=== PATIENT | female | born 1950 | race Caucasian/White ===

== ENCOUNTER 2017-09-13 16:42 | Observation (INO) | payer BC, OTHER ==
[~2017-09-13] VITALS: Ht 162.6 cm; Wt 105.7 kg
[~2017-09-13 16:42] MED LIST: ASPIR 8181 MG PO; ATENOLOL50 MG PO; LIPITOR10 MG PO; TRIAMTERENE-HC1 EAC1 PO
[2017-09-13] MEDS ORDERED: ASPIRIN 81 MG CHEW TAB PO STA (17:03)
[2017-09-13] MEDS ORDERED: NITROGLYCERIN 2% OINT 1 GM PKT TOP STA (17:03)
[2017-09-13] MEDS ORDERED: ASPIRIN 81 MG CHEW TAB PO ONE ×2 (17:15→19:00)
[2017-09-13 17:38] LABS: BASOPHILS # (AUTO) 0.1 (0.0-0.1); BASOPHILS % 0.8 % (0.0-1.0); EOSINOPHILS # (AUTO) 0.1 (0.0-0.4); EOSINOPHILS % 1.2 % (0.0-6.0); HEMATOCRIT 38.1 % (34.2-44.1); HEMOGLOBIN 13.2 g/dL (12.0-16.0); LYMPHOCYTES # (AUTO) 2.2 (1.0-3.2); LYMPHOCYTES % 26.5 % (18.0-39.1); MEAN CORPUSCULAR HEMOGLOBIN 28.4 pg (28-32); MEAN CORPUSCULAR HGB CONC 34.6 g/dL (31-35); MEAN CORPUSCULAR VOLUME 81.9 fL (81-99); MONOCYTES # (AUTO) 0.6 (0.2-0.8); MONOCYTES % 7.4 % (4.4-11.3); NEUTROPHILS # (AUTO) 5.4 (2.1-6.9); NEUTROPHILS % 63.9 % (38.7-80.0); PLATELET COUNT 311 x10e3/uL (140-360); RED BLOOD COUNT 4.65 x10e6/uL (3.6-5.1); RED CELL DISTRIBUTION WIDTH 12.9 % (11.7-14.4)
[2017-09-13 17:44] LABS: INR 1.01; PROTHROMBIN TIME 12.5 seconds (11.9-14.5)
[2017-09-13 17:54] LABS: ALANINE AMINOTRANSFERASE 13 IU/L (0-55); ALBUMIN 3.5 g/dL (3.5-5.0); ALBUMIN/GLOBULIN RATIO 1.1 (0.8-2.0); ALKALINE PHOSPHATASE 66 IU/L (40-150); ANION GAP 14.2 mmol/L (8-16); BLOOD UREA NITROGEN 14 mg/dL (7-26); BUN/CREATININE RATIO 16 (6-25); CALCIUM 9.2 mg/dL (8.4-10.2); CARBON DIOXIDE 28 mmol/L (22-29); CHLORIDE 99 mmol/L (98-107); CREATINE KINASE 80 IU/L (29-168); CREATININE, SERUM 0.87 mg/dL (0.57-1.11); EST GLOMERULAR FILTRATION RATE > 60 ML/MIN (60-); GLUCOSE 114 mg/dL (74-118); POTASSIUM 3.2 mmol/L (3.5-5.1); SODIUM 138 mmol/L (136-145)
--- NOTE | 2017-09-13 18:37 | Diagnostic Imaging Report ---
PROCEDURE: A single AP view of the chest. COMPARISON: Patients [facility], , CHEST 2 VIEWS, 11/05/2012, 19:14. INDICATIONS: CHEST PAIN FINDINGS: Lines/tubes: None. Lungs: The lungs are well inflated and clear. There is no evidence of pneumonia or pulmonary edema. Pleura: There is no pleural effusion or pneumothorax. Heart and mediastinum: The heart and the mediastinum are unremarkable. Bones: No acute bony abnormality. IMPRESSION: 1. No acute cardiopulmonary abnormalities. Ronan Crabtree M.D. Dictated by: Ronan Crabtree M.D. on 09/13/2017 at 18:36 Electronically approved by: Ronan Crabtree M.D. on 09/13/2017 at 18:36
[2017-09-13] MEDS ORDERED: ENOXAPARIN SODIUM INJ 100 MG/ML SYR SC STA (18:46)
[2017-09-13] MEDS ORDERED: NITROGLYCERIN 0.4 MG SUBL SL PRN (19:00)
[2017-09-13] MEDS ORDERED: ONDANSETRON HCL INJ 2 MG/ML VIAL IV PRN (19:00)
[2017-09-13] MEDS ORDERED: SODIUM CHLORIDE FLUSH 10 ML SYR INJ PRN (19:00)
[2017-09-13] MEDS: FAMOTIDINE 20 MG TAB PO SCH (19:47)
--- OUTSIDE RECORDS SUMMARY | 2017-09-13 20:25 | XMS REPORT ---
Author Author [facility] Address Unknown Phone Unavailable Care Team Providers Care Laborer Airport Maintenance Name Role Phone BILL GO Unavailable Unavailable Problems This patient has no known problems. Allergies, Adverse Reactions, Alerts This patient has no known allergies or adverse reactions. Medications This patient has no known medications. Results Test Description Test Time Test Comments Text Results Atomic Results Result Comments CHEST SINGLE (PORTABLE) [place] [address] Patient Name: RAGHAVENDRA CARRERA MR #: [id number] : 1950 Age/Sex: 67/F Req #: [id number] Adm Physician: Ordered by: BILL GO MD Report #: [id number] Location: ER Room/Bed: Procedure: [id number] DX/CHEST SINGLE (PORTABLE) Exam Date: 09/13/17 Exam Time: 1756 REPORT STATUS: Signed PROCEDURE: A single AP view of the chest. COMPARISON: [facility], , CHEST 2 VIEWS, 11/05/2012, 19:14. INDICATIONS: CHEST PAIN FINDINGS: Lines/tubes: None. Lungs: The lungs are well inflated and clear. There is no evidence of pneumonia or pulmonary edema. Pleura: There is no pleural effusion or pneumothorax. Heart and mediastinum: The heart and the mediastinum are unremarkable. Bones: No acute bony abnormality. IMPRESSION: 1. No acute cardiopulmonary abnormalities. Cris Crabtree M.D. Dictated by: Cris Crabtree M.D. on 09/13/2017 at 18:36 Electronically approved by: Cris Crabtree M.D. on 09/13/2017 at 18:36 Dictated By: CRIS CRABTREE MD 35 Transcribed By: JOSEPH on 09/13/171835 COPY TO: BILL GO MD
[2017-09-13 21:30] VITALS: BP_SYST 118; BP_SYST 122; BP_DIAS 62
[2017-09-13 22:28] LABS: BILIRUBIN,URINE NEGATIVE (NEGATIVE); COLOR,URINE YELLOW (YELLOW); KETONES,URINE NEGATIVE (NEGATIVE); LEUKOCYTE ESTERASE ,URINE NEGATIVE (NEGATIVE); NITRITE,URINE NEGATIVE (NEGATIVE); PROTEIN,URINE DIPSTICK NEGATIVE (NEGATIVE); URINE UROBILINOGEN 0.2 mg/dL (0.2 - 1)
[2017-09-13 22:29] LABS: CLARITY,URINE SL CLOUDY (CLEAR)
[2017-09-13 22:42] LABS: BACTERIA,URINE FEW /HPF; EPITHELIAL CELLS,URINE FEW /LPF; RBC,URINE 0-5 /HPF (0-5); WBC,URINE (MAN) 0-5 /HPF (0-5)
[2017-09-13] MEDS ORDERED: ALBUTEROL/IPRATROPIUM 3 ML NEB ONE (23:17)
[2017-09-14] VITALS: BP 118/62
[2017-09-14 01:40] LABS: CHOL/HDL RATIO 5.5 (3.0-3.6)
[2017-09-14] MEDS ORDERED: MULTI-VITAMIN1 EACH PO (04:47)
[2017-09-14] MEDS ORDERED: PLAVIX75 MG PO (04:47)
[2017-09-14 06:00] VITALS: BP 129/66
[2017-09-14] MEDS ORDERED: PNEUMOCOCCAL VACCINE POLYVALENT 23 MCG/0.5 ML VIAL IM ONE (08:00)
[2017-09-14] MEDS: FAMOTIDINE 20 MG TAB PO SCH (09:00)
[2017-09-14] MEDS ORDERED: ASPIRIN 81 MG ENTERIC COATED PO SCH ×2 (09:00→09:45)
[2017-09-14 09:19] VITALS: BP 150/67
[2017-09-14 09:30] LABS: CREATINE KINASE 59 IU/L (29-168)
[2017-09-14] MEDS ORDERED: ACETAMINOPHEN 325 MG TAB PO PRN (09:45)
[2017-09-14] MEDS ORDERED: CLOPIDOGREL BISULFATE 75 MG TAB PO SCH (09:45)
[2017-09-14] MEDS ORDERED: TRIAMTERENE/HCTZ 37.5-25 MG TAB PO SCH (10:30)
--- NOTE | 2017-09-14 11:12 | Consultation ---
DATE OF CONSULTATION: September 14, 2017 REASON FOR CONSULTATION: Chest pain. HPI: This is a 67-year-old female with a known history of CAD, status post LAD PCI in October 2012, hypertension, hypercholesterolemia, and obesity. Patient presents to [facility] ER with complaints of chest pain that started about 2 o'clock yesterday. Describes the chest pain as retrosternal, tightness, pressure with shortness of breath and diaphoresis that lasted about an hour and relieved on its own. Came to the ER for further evaluation. Initial enzymes were negative times 2. Reports that she has been compliant with her aspirin, Plavix, beta nicholas, and statin therapy. Currently, is chest pain free. PAST MEDICAL HISTORY: LAD PCI on November 04, 2012, hypertension, hyperlipidemia. PAST SURGICAL HISTORY: LAD PCI in 2012, cervical surgery, hysterectomy. FAMILY HISTORY: Mother alive at 82 years old. History of CVA. She is bedridden. Father at age 72 with complications of CVA. SOCIAL HISTORY: She is and nonsmoker. Denies any alcohol use. She is a general office clerk. ALLERGIES: NO KNOWN ALLERGIES. REVIEW OF SYSTEMS GENERAL: No fevers. No night sweats. No chills. No weight loss or weight gain. HEENT: Positive for headaches. No lightheadedness, vertigo. No decreased hearing, tinnitus. No nosebleeds. No stuffiness. No sore throat. No hemoptysis. RESPIRATORY: Positive for shortness of breath with exertion. Denies any hemoptysis or any wheezing. CARDIOVASCULAR: Positive chest pain as per HPI. Positive for fatigue, dyspnea on exertion. Denies any orthopnea. Positive for palpitations. GI: Good appetite. No constipation. No abdominal pain. No diarrhea. No hemoptysis. No melena. No blood in stool. Positive for reflux. HEMATOLOGY: Positive for easy bruising. : Denies any frequency, incontinence, hematuria, any burning, or pain on urination. MUSCULOSKELETAL: Right leg pain. Right shoulder pain. Generalized joint pains. PERIPHERAL VASCULAR: Occasional lower extremity edema. SKIN: No dryness. No easy bruising. NEUROLOGIC: No fainting. No tremors. PHYSICAL EXAMINATION VITAL SIGNS: Temperature 97.2, pulse 60, respiratory rate 18, blood pressure 150/67, pulse ox 98. Height 64 inches and weight 233 pounds. GENERAL: Appears stated age. No acute distress. Reliable informant. HEENT: Normocephalic. Extraocular movements intact. Pupils equal and reactive. Mucosa is pink. Trachea midline. No carotid bruits. No JVD. CARDIAC: S1 and S2. Regular rate and rhythm. PMI in the left 5th intercostal space. RESPIRATORY: Bilateral breath sounds clear to auscultation. Good air entry and exit. ABDOMEN: Soft, nontender and obese. No organomegaly noted. EXTREMITIES: Plus 1 lower extremity edema. Positive varicose veins. VASCULAR: Plus 2 bilateral radial pulses. Plus 2 bilateral PT and DP pulses. NEUROLOGIC: Cranial nerves II-XII intact. IMAGING: Chest x-ray with no acute abnormalities. EKG with Q-waves in lead III. LABS: Hemoglobin 13.2, hematocrit 38 and platelets 311,000. Chemistry: Sodium 138, potassium 3.2, chloride 99, bicarb 28, BUN 14, creatinine 0.8. Troponin 0.059 and 0.01. BNP 34. ASSESSMENT AND PLAN 1. Coronary artery disease with history of percutaneous coronary intervention with chest pain. 2. Hypertension. 3. Hyperlipidemia. 4. Obesity. 5. Reflux. PLAN: Patient presents with anginal symptoms with history of PCI. Will go ahead and do a stress test to evaluate symptoms. If positive, the patient will undergo left heart catheterization. Will go ahead and continue the patient's aspirin, Plavix, statin, and beta nicholas therapy. Will continue the patient on antihypertensives. Further recommendations post stress test. Thank you very much for this consult. Will follow the patient and adjust therapy as course progresses. DICTATED BY TOBY HENLEY NP Job#: [id number] JIMMY
--- NOTE | 2017-09-14 12:31 | Cardiology Report ---
DATE OF STUDY: September 14, 2017 CARDIAC STRESS TEST TECHNICAL DETAILS: The protocol is Giovanni with A target heart rate at 132 per minute. RESULTS: 1. Patient exercised for 5 minutes and 1 second. 2. Heart rate increased from 74 to 152 per minute. 3. Blood pressure increased from 140/60 to 162/64. No EKG changes. 4. No chest pain. Only shortness of breath. IMPRESSION: Negative cardiac stress test. Limitations of a negative cardiac stress test are discussed and explained to the patient and her daughter. Job#: [id number] EV
[2017-09-14] MEDS ORDERED: ATORVASTATIN 40 MG TAB PO SCH (21:00)
[2017-09-14] MEDS ORDERED: ATORVASTATIN 20 MG TAB PO SCH (21:00)
[2017-09-15] MEDS ORDERED: ATENOLOL 50 MG TAB PO SCH (09:00)
== END 2017-09-14 13:36 | disposition home or self-care (01) ==
LOC: ER 16:42 → EDBEDREQ 19:41 → IMCU 20:22
DX: R07.9 Chest pain, unspecified (principal); I25.10 Atherosclerotic heart disease of native coronary artery without angina pectoris; Z95.5 Presence of coronary angioplasty implant and graft; I10 Essential (primary) hypertension; E66.9 Obesity, unspecified; K21.9 Gastro-esophageal reflux disease without esophagitis; E78.00 Pure hypercholesterolemia, unspecified
CPT/HCPCS: 36415 ×2; 71045; 80053; 80061; 81001; 82550 ×2; 82553 ×2; 83880; 84484 ×2; 85025; 85610; 85730; 87086; 90732; 93005; 93017; 96372; 99284; G0378 ×2; J1650

== ENCOUNTER 2019-03-20 12:02 | Observation (INO) | payer MEDICARE, OTHER ==
[~2019-03-20] VITALS: Ht 162.6 cm; Wt 105.7 kg
[2019-03-20] VITALS (11 sets, daily range): BP systolic 119–164; BP diastolic 58–74
[~2019-03-20 12:02] MED LIST changes: +MULTI-VITAMIN1 EACH PO; +PLAVIX75 MG PO
--- OUTSIDE RECORDS SUMMARY | 2019-03-20 12:05 | XMS REPORT | Encounter Summary ---
Author Organization Unknown Address [address] [place] [id number] Phone [phone] Reason for Visit Medical Complaint; fever, body aches, headache, cough x 6 days Instructions 1. Acute upper respiratory infection Discussion Note: None recorded. Patient educational handouts: No information available. Plan of Care Patient Instructions Instruct pt to start on Flonase 2 sprays at bedtime x 14 days for her nasal congestion along with continuing her antibiotic. If pt noted fever returns or wet productive, chest congestion, call clinic or see pcp. Reminders Provider Appointments None recorded. Lab None recorded. Referral None recorded. Procedures None recorded. Surgeries None recorded. Imaging None recorded. Medications Name Start Date atenolol 50 mg tablet atorvastatin 10 mg tablet Augmentin 875 mg-125 mg tablet Take 1 tablet(s) every 12 hours by oral route for 7 days. clopidogrel 75 mg tablet promethazine-DM 6.25 mg-15 mg/5 mL syrup Take 5 mL every 6 hours by oral route as needed. triamterene 75 mg-hydrochlorothiazide 50 mg tablet Medications Administered None recorded. Vitals Height Weight BMI Blood Pressure 5 ft 4 in 226 lbs 38.8 134/82 Lab Results Date Name Result Description Status Rapid Flu (A+B) Influenza a: negative Influenza B: negative Rapid Strep Group a, Throat Result: negative Swab Location: Left and Right tonsillar pillars Allergies Name Reaction Severity Onset NKDA Problems Name Status Onset Date Source Acute Upper Respiratory Infection Active Encounter Cough Active Encounter Procedures Date Name Performed by Appendectomy Information not available Vaccine List None recorded. Social History Smoking Status Never Smoker Past Encounters 11/06/2015 Acute Upper Respiratory Infection EVERARDO Merrill: [address] [place] [address], Ph. 11/03/2015 Cough EVERARDO Still: [address] [place] [address], Ph. History of Present Illness Xzrgqip-Abrab-Igt Reported By: Patient HPI: Quality: ; fever 101.4F. Duration: constant. Severity: subjective temperature. Onset/Timing: first recorded 4 days. Context: no ill contacts, no tick/insect bites, no recent travel, no new medications. Associated Symptoms: no rash, no lethargy, cough, nasal passage blockage (stuffiness). Modifying Factors OTC medication Review of Systems Basic Reported By: Patient Constitutional: Constitutional: fever Eyes: Eyes: no eye complaints Zmhm-Pniy-Foefd-Throat: Ears: no ear complaints. Nose: nose/sinus problems. Mouth/Throat: no sore throat, no bleeding gums, no mouth complaints, no teeth problems Cardiovascular: Cardiovascular: no chest pain, no shortness of breath, no known heart murmur Respiratory: Respiratory: no wheezing, no shortness of breath, cough Gastrointestinal: Gastrointestinal: no abdominal pain, no vomiting / diarrhea Genitourinary: Genitourinary: no urinary complaints, no discharge Musculoskeletal: Musculoskeletal: no muscle aches, no muscle weakness, no arthralgias/joint pain, no back pain Skin: Skin: no abnormal / changing mole, no jaundice, no rashes Neurologic: Neurologic: no loss of consciousness, no weakness, no numbness, no seizures, no dizziness, no headaches Physical Exam Adult Female Complete, Adult Basic Constitutional: General Appearance: healthy-appearing, well-nourished, well-developed, overweight. Level of Distress: NAD. Ambulation: ambulating normally Psychiatric: Mental Status: active and alert. Orientation: to time, to place, to person Eyes: Lids and Conjunctivae: non-injected, no discharge, no pallor. Pupils: PERRLA. Corneas: grossly intact. EOM: EOMI. Lens: clear. Sclerae: non-icteric. Vision: acuity grossly intact Hxz-Hbhx-Owiva-Throat: Ears: no lesions on external ear, no outer ear tenderness, EACs clear, TMs clear. Hearing: no hearing loss. Nose: no lesions on external nose, nares patent, no septal deviation, nasal passages clear, no sinus tenderness, no nasal discharge; nasal turbinate hypertrophic. Lips, Teeth, and Gums: no mouth or lip ulcers, no bleeding gums, normal dentition. Oropharynx: moist mucous membranes, no erythema, no exudates, tonsils not enlarged Neck: Neck: supple, trachea midline, no masses, FROM. Lymph Nodes: no cervical LAD, no supraclavicular LAD. Thyroid: no enlargement, non-tender, no nodules Lungs: Respiratory effort: no dyspnea, no tachypnea, no use of accessory muscles, no intercostal retractions. Auscultation: breath sounds normal Cardiovascular: Heart Auscultation: RRR, no murmurs. Neck vessels: no carotid bruits
--- OUTSIDE RECORDS SUMMARY | 2019-03-20 12:05 | XMS REPORT ---
Author Author Dottie Harris Organization [employer] Address Unknown Phone Unavailable Care Team Providers Care Adjuster Electrical Contacts Name Role Phone Dottie Harris CP Unavailable Encounters Encounter Location Date Unknown Dottie Harris MD [place] Sep 11, 2015 Unknown Dottie Harris MD [place] Sep 11, 2015 Problems Problem Type Condition ICD-9 Code Onset Dates Condition Status Problem Atherosclerosis of [place] coronary artery of [place] heart with angina pectoris I25.119 Active Problem Hypercholesterolemia E78.0 Active Problem Heart failure I50.9 Active Problem Nonrheumatic mitral (valve) insufficiency I34.0 Active Problem Hypercholesterolemia 272.0 Active Problem Hypertensive heart disease with heart failure I11.0 Active Problem 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 Active Problem Carotid bruit R09.89 Active Problem Claudication I73.9 Active Problem History of PTCA Z98.61 Active Problem Abnormal EKG R94.31 Active Problem CAD, [place] Coronary Artery 414.01 Active Problem PTCA Status V45.82 Active Problem Abnormal EKG 794.31 Active Problem HTN heart dis benign, without CHF 402.10 Active Problem [place] (dyspnea on exertion) R06.09 Active Problem CAD in [place] artery I25.10 Active Problem Claudication 443.9 Active Problem Atypical chest pain R07.89 Active Problem Carotid Bruit 785.9 Active Problem Hypertensive heart disease without heart failure I11.9 Active Medications Medication Code System Code Instructions Start Date End Date Status Dosage Atenolol MEDISPAN [address]-53 50 mg Orally Once a day Active 1 tablet Social History Social History Element Qualifiers Date Reported Smoking . Status Never Smoker Aug 19, 2015 Alcohol Use No. Aug 19, 2015 Alcohol Screening: No. Did you have a drink containing alcohol in the past year?: No, Points: 0, Interpretation: Negative Aug 19, 2015 Marital Status: . Aug 19, 2015 Do you drink alcohol? No. 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
--- OUTSIDE RECORDS SUMMARY | 2019-03-20 12:05 | XMS REPORT ---
Author Author Chaparro Harris [facility] [employer] Address Unknown Phone Unavailable Care Team Providers Care Sales Executive Name Role Phone Chaparro Harris Unavailable Allergies, Adverse Reactions, Alerts Substance Reaction Event Type N.K.D.A. 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 Active Assessment Claudication I73.9 Active Assessment Right leg pain M79.604 Active Assessment Hypercholesterolemia E78.01 Active Assessment Palpitations R00.2 Active Problem CAD in [place] artery I25.10 Active Assessment Carotid bruit R09.89 Active Problem History of PTCA Z98.61 Active Assessment Hypertensive heart disease without heart failure I11.9 Active Problem [place] (dyspnea on exertion) R06.09 Active Problem Claudication I73.9 Active Problem Carotid bruit R09.89 Active Problem Right leg pain M79.604 Active Problem Stented coronary artery Z95.5 Active Assessment Stented coronary artery Z95.5 Active Assessment [place] (dyspnea on exertion) R06.09 Active Problem Palpitations R00.2 Active Assessment Abnormal EKG R94.31 Active Problem 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 Active Problem Abnormal EKG R94.31 Active Problem 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 Active Problem Nonrheumatic mitral (valve) insufficiency I34.0 Active Problem Hypertensive heart disease without heart failure I11.9 Active Problem Hypercholesterolemia E78.01 Active Assessment CAD in [place] artery I25.10 Active Assessment Atherosclerosis of [place] coronary artery of [place] heart with angina pectoris I25.119 Active Problem Heart failure I50.9 Active Problem Atherosclerosis of [place] coronary artery of [place] heart with angina pectoris I25.119 Active Problem Hypertensive heart disease with heart failure I11.0 Active Problem Atypical chest pain R07.89 Active Medications Medication Code System Code Instructions Start Date End Date Status Dosage Atenolol [facility] 98541529031 50 mg Orally Once a day Active 1 tablet Clopidogrel Bisulfate [facility] 20156203751 75 Orally daily Active take one tablet by mouth daily Cod Liver Oil [facility] 79124322941 - Orally Active not defined Vitamin D [facility] 04333394714 1000 UNIT Orally Once a day Active 1 tablet Aspirin Adult Low Strength [facility] 78777261893 81 MG Orally Once a day Active 1 tablet Triamterene-HCTZ [facility] 26051018295 75-50 MG Orally Once a day Active 1 tablet in the morning Centrum Silver Ultra Womens [facility] 72282618934 Orally Active as directed Vitamin B12 [facility] 68154237415 100 MCG Orally Once a day Active 1 tablet Calcium [facility] 85605080851 500MG Orally Once a day Active 2 tablet with food Vitamin E [facility] 96233615183 100 UNIT Orally Once a day Active 1 capsule Clopidogrel Bisulfate [facility] 86810170230 75 MG PO daily Active 1 tablet Atorvastatin Calcium [facility] 35408846490 40 MG Orally Once a day Active 1 tablet Vital Signs Date/Time: September 28, 2017 BMI 39.65 Index Weight 231 lbs Height 64 in Temperature 96.5 F Cardiac Monitoring Heart Rate 60 /min Blood Pressure Diastolic 76 mm Hg Blood Pressure Systolic 120 mm Hg Results No Known Results Summary Purpose [employer] Submission
--- OUTSIDE RECORDS SUMMARY | 2019-03-20 12:05 | XMS REPORT ---
Author Author Dottie Harris Organization [employer] Address Unknown Phone Unavailable Care Team Providers Care Cyber Software Engineer Name Role Phone Dottie Harris Unavailable Encounters Encounter Location Date Unknown Dottie Harris MD [place] Sep 11, 2015 Unknown Dottie Harris MD [place] Sep 11, 2015 Unknown Dottie Harris MD [place] December 19, 2015 Problems Problem Type Condition ICD-9 Code Onset Dates Condition Status Problem Atherosclerosis of [place] coronary artery of [place] heart with angina pectoris I25.119 Active Problem [...] Problem Abnormal EKG R94.31 Active Problem CAD, [place] Coronary Artery 414.01 Active Problem PTCA Status V45.82 Active Problem Abnormal EKG 794.31 Active Problem HTN heart dis benign, without CHF 402.10 Active Problem [place] (dyspnea on exertion) R06.09 Active Problem CAD in [place] artery I25.10 Active Problem Claudication 443.9 Active Problem Atypical chest pain R07.89 Active Problem Carotid Bruit 785.9 Active Problem Hypertensive heart disease without heart failure I11.9 Active Medications Medication Code System Code Instructions Start Date End Date Status Dosage Atorvastatin Calcium MEDISPAN [address]-43 40 MG Orally Once a day Active 1 tablet Social History Social History Element Qualifiers Date Reported Smoking . Status Never Smoker October 20, 2015 Alcohol Use No. October 20, 2015 Alcohol Screening: No. Did you have a drink containing alcohol in the past year?: No, Points: 0, Interpretation: Negative October 20, 2015 Marital Status: . October 20, 2015 Do you drink alcohol? No. 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
--- OUTSIDE RECORDS SUMMARY | 2019-03-20 12:05 | XMS REPORT ---
Author Author Dottie Harris Organization [employer] Address Unknown Phone Unavailable Care Team Providers Care Winder Fixer Name Role Phone Dottie Harris Unavailable Encounters Encounter Location Date Unknown Dottie Harris MD [place] December 08, 2015 Unknown Dottie Harris MD [place] Mar 16, 2016 Unknown Dottie Harris MD [place] Sep 11, 2015 Unknown Dottie Harris MD [place] Sep 11, 2015 Unknown Dottie Harris MD [place] December 19, 2015 Problems Problem Type Condition ICD-9 Code Onset Dates Condition Status Problem Atherosclerosis of [place] coronary artery of [place] heart with angina pectoris I25.119 Active Problem [...] Problem Abnormal EKG R94.31 Active Problem CAD, [place] Coronary Artery 414.01 Active Problem PTCA Status V45.82 Active Problem Abnormal EKG 794.31 Active Problem HTN heart dis benign, without CHF 402.10 Active Problem [place] (dyspnea on exertion) R06.09 Active Problem CAD in [place] artery I25.10 Active Problem Claudication 443.9 Active Problem Atypical chest pain R07.89 Active Problem Carotid Bruit 785.9 Active Problem Hypertensive heart disease without heart failure I11.9 Active Medications Medication Code System Code Instructions Start Date End Date Status Dosage Atenolol [facility] [address]-39 50 mg Orally Once a day Active [...] alcohol? No. 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
--- OUTSIDE RECORDS SUMMARY | 2019-03-20 12:05 | XMS REPORT | Encounter Summary ---
Author Organization Unknown Address [address] [place] [address] Phone [phone] Care Team Providers Care Patient Assessment Coordinator Name Role Phone Jae King 3 [phone] Reason for Visit Medical Complaint Instructions 1. Sore throat symptom sore throat: care instructions Lidocaine Viscous 2 % mucosal solution rapid strep group A, throat 2. Dysfunction of eustachian tube eustachian tube problems: care instructions fluticasone 50 mcg/actuation nasal spray,suspension Discussion Note Pt is in NAD; Verbalizes understanding of all instructions with no questions at this time. Plan of Care Patient Instructions Gargle and spit viscous lidocaine as needed for sore throat as directed. Alternate with Ibuprofen and acetaminophen every 4hrs as needed for pain. Proper hydration and rest.Do not share any utensils/cups, no kissing. Frequent handwashing recommended. Take fluticasone as needed for ear congestion. Celina one spray in each nostril twice a day. Take a warm, steamy shower, blow your nose thereafter, and spray in each nostril. Tilt your head up for about 10 seconds and breath through your mouth. Do not sniff or snort the medication in or else the medication will go to your throat and not be absorbed appropriately. Take medications as prescribed and follow up with a PCP within 2-3 if symptoms worsen as discussed. Reminders Provider Appointments None recorded. Lab Rapid Strep Group a, Throat 03/05/2017 [facility] Referral None recorded. Procedures None recorded. Surgeries None recorded. Imaging None recorded. Medications Name Start Date atenolol 50 mg tablet atorvastatin 40 mg tablet clopidogrel 75 mg tablet fluticasone 50 mcg/actuation nasal spray,suspension [place] 1 spray twice a day by intranasal route as needed for 10 days. Lidocaine Viscous 2 % mucosal solution Take 15 mL every 3 hours by oral route as needed. Medications Administered None recorded. Vitals Height Weight BMI Blood Pressure 5 ft 4 in 230 lbs 39.5 kg/m2 122/82 mm[Hg] Lab Results Date Name Specimen Result Interpretation Description Value Range Status Address Rapid Strep Group a, Throat Result negative [facility]: [address] [place] [address] Swab Location Left and Right tonsillar pillars [facility]: [address] [place] [address] Allergies Code Code System Name Reaction Severity Status Onset NKDA Problems Name Status Onset Date Source Acute Upper Respiratory Infection Active Encounter Cough Active Encounter Procedures Date Name Performed by Appendectomy Information not available Vaccine List Vaccine Type influenza, unspecified formulation 05/25/2016 Tdap 07/25/2011 Social History Smoking Status Never Smoker Past Encounters 03/05/2017 Sore Throat Symptom; Dysfunction of Eustachian Tube Porsha Shen, [employer]-C: [address] [place] [address], Ph. History of Present Illness Throat-Oral Complaint Reported By: Patient HPI: Location: throat. Quality: sore throat. Severity: moderate, pain level 6-7/10. Duration: 2 days. Onset/Timing: sudden. Context: no sick contacts, no foreign travel, non-smoker. Modifying factors: salt water gargles. Associated Symptoms: no fever, no headache, no body aches, no sputum production, no shortness of breath, no wheezing, no change in number of pillows needed to sleep at night, no sweats, no significant weight gain, no significant weight loss, no morning cough, no vomiting, no diarrhea, no rash, no nausea, sore throat Ear Complaint Reported By: Patient HPI: Location: bilateral, pain below ear. Quality: ears feel full/plugged, throbbing. Severity: progressively worse, intermittent, current pain /10. Duration: intermittent; 2 days. Onset/Timing: worse, gradual. Context: no sick contacts, no recent swimming/water in ear, no exposure to second hand smoke, no head trauma, not grinding teeth, no recent air travel. Modifying factors: does not hurt to lie on, or pull on ear, does not hurt to chew. Associated Symptoms: no discharge from the ears, no hearing loss, no nose/sinus problems, no ringing in the ears, no fever, no chills, no earache, no dizziness, no vertigo, no headache, no muscle aches, popping noise in the ears Review of Systems:ROS as noted in the HPI Review of Systems Basic Reported By: Patient Physical Exam Adult Basic, Adult Female Complete Reported By: Patient Constitutional: General Appearance: healthy-appearing, well-nourished, well-developed. Level of Distress: NAD. Ambulation: ambulating normally Psychiatric: Mental Status: active and alert. Orientation: to time, to place, to person Osz-Owli-Gvqly-Throat: Ears: no lesions on external ear, EACs clear, TMs clear, outer ear tenderness. Hearing: no hearing loss. Nose: no lesions on external nose, nares patent, no septal deviation, nasal passages clear, no sinus tenderness, no nasal discharge. Lips, Teeth, and Gums: no mouth or lip ulcers, no bleeding gums, normal dentition. Oropharynx: moist mucous membranes, no erythema, no exudates, tonsils not enlarged Neck: Neck: supple. Lymph Nodes: no cervical LAD Lungs: Respiratory effort: no dyspnea, no tachypnea, no use of accessory muscles, no intercostal retractions. Auscultation: breath sounds normal Cardiovascular: Heart Auscultation: RRR, no murmurs Neurologic: Gait and Station: normal gait, normal station
--- OUTSIDE RECORDS SUMMARY | 2019-03-20 12:05 | XMS REPORT ---
Author Author Chaparro Harris Organization [employer] Address Unknown Phone Unavailable Care Team Providers Care Narcotics Investigator Name Role Phone Chaparro Harris Unavailable Allergies, Adverse Reactions, Alerts Substance Reaction Event Type N.K.D.A. 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 Active Assessment Right leg pain M79.604 Active Assessment Hypercholesterolemia E78.01 Active Problem CAD in [place] artery I25.10 Active Assessment Claudication I73.9 Active Problem History of PTCA Z98.61 Active Assessment Carotid bruit R09.89 Active Problem [place] (dyspnea on exertion) R06.09 Active Problem Claudication I73.9 Active Problem Carotid bruit R09.89 Active Problem Right leg pain M79.604 Active Problem Stented coronary artery Z95.5 Active Assessment [place] (dyspnea on exertion) R06.09 Active Assessment Abnormal EKG R94.31 Active Problem Palpitations R00.2 Active Assessment Hypertensive heart disease without heart failure I11.9 Active Problem 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 Active Problem Abnormal EKG R94.31 Active Problem 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 Active Problem Nonrheumatic mitral (valve) insufficiency I34.0 Active Problem Hypertensive heart disease without heart failure I11.9 Active Problem Hypercholesterolemia E78.01 Active Assessment Stented coronary artery Z95.5 Active Assessment CAD in [place] artery I25.10 Active Problem Heart failure I50.9 Active Problem 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 Active Problem Hypertensive heart disease with heart failure I11.0 Active Problem Atypical chest pain R07.89 Active Medications Medication Code System Code Instructions Start Date End Date Status Dosage Calcium NDC 11926103964 500MG Orally Once a day Active 2 tablet with food Triamterene-HCTZ NDC 29250448399 75-50 MG Orally Once a day Active 1 tablet in the morning Atorvastatin Calcium [facility] 87106248092 40 MG Orally Once a day Active 1 tablet Centrum Silver Ultra Womens [facility] 41912442036 Orally Active as directed Vitamin B12 [facility] 83784660058 100 MCG Orally Once a day Active 1 tablet Vitamin D [facility] 29641409904 1000 UNIT Orally Once a day Active 1 tablet Clopidogrel Bisulfate [facility] 59088573509 75 Orally daily Active take one tablet by mouth daily Atenolol [facility] 92595961035 50 mg Orally Once a day Active 1 tablet Aspirin Adult Low Strength [facility] 99766125394 81 MG Orally Once a day Active 1 tablet Vital Signs Date/Time: December 15, 2016 BMI 38.62 Index Weight 225 lbs Height 64 in Temperature 97.1 F Cardiac Monitoring Heart Rate 63 /min Blood Pressure Diastolic 80 mm Hg Blood Pressure Systolic 132 mm Hg Results No Known Results Summary Purpose [employer] Submission
--- OUTSIDE RECORDS SUMMARY | 2019-03-20 12:05 | XMS REPORT | Continuity of Care Document ---
Author Author [facility] Organization [employer] Address Unknown Phone Unavailable Care Team Providers Care Fisher Name Role Phone [employer] Unavailable Unavailable Problems Problem Status Onset Date Classification Date Reported Comments Source Sore throat symptom 03/05/2017 Diagnosis 03/05/2017 [facility] Dysfunction of eustachian tube 03/05/2017 Diagnosis 03/05/2017 [facility] Atherosclerosis of [place] coronary artery of [place] heart with angina pectoris Active Problem 04/27/2018 Dottie Harris Hypercholesterolemia Active Problem 03/17/2016 Dottie Harris Heart failure Active Problem 04/27/2018 Dottie Harris Nonrheumatic mitral (valve) insufficiency Active Problem 04/27/2018 Dottie Harris Hypercholesterolemia Active Problem 03/17/2016 Dottie Harris Hypertensive heart disease with heart failure Active Problem 04/27/2018 Dottie Harris Nonrheumatic tricuspid valve disorder Active Problem 04/27/2018 Dottie Harris Carotid bruit Active Diagnosis 04/27/2018 Dottie Harris Claudication Active Diagnosis 04/27/2018 Dottie Harris History of PTCA Active Problem 04/27/2018 Dottie Harris Abnormal EKG Active Diagnosis 04/27/2018 Dottie Harris CAD, [place] Coronary Artery Active Problem 03/17/2016 Dottie Harris PTCA Status Active Problem 03/17/2016 Dottie Harris Abnormal EKG Active Problem 03/17/2016 Dottie Harris HTN heart dis benign, without CHF Active Problem 03/17/2016 Dottie Harris L[place] (dyspnea on exertion) Active Problem 04/27/2018 Dottie Harris CAD in [place] artery Active Problem 04/27/2018 Dottie Harris Claudication Active Problem 03/17/2016 Dottie Harris Atypical chest pain Active Problem 04/27/2018 Dottie Harris Carotid Bruit Active Problem 03/17/2016 Dottie Harris Hypertensive heart disease without heart failure Active Diagnosis 04/27/2018 Dottie Harris Varicose veins of lower extremities with other complications Active Diagnosis 04/27/2018 Dottie Harris Right leg pain Active Diagnosis 04/27/2018 Dottie Harris Hypercholesterolemia Active Diagnosis 04/27/2018 Dottie Harris Stented coronary artery Active Problem 04/27/2018 Dottie Harris Palpitations Active Problem 04/27/2018 Dottie Harris Acute upper respiratory infection Problem 03/05/2017 [facility] Cough Problem 03/05/2017 [facility] Medications Medication Details Route Status Patient Instructions Ordering Provider Order Date Source Atenolol 1 tablet Orally Active 50 mg Orally Once a day Kimberly Harris Atorvastatin Calcium 1 tablet Orally Active 40 MG Orally Once a day Kimberly Harris Calcium 2 tablet with food Orally Active 500MG Orally Once a day Kimberly Harris Triamterene-HCTZ 1 tablet in the morning Orally Active 75-50 MG Orally Once a day Kimberly Harris Atorvastatin Calcium 1 tablet Orally Active 40 MG Orally Once a day Kimberly Harris Centrum Silver Ultra Womens as directed Orally Active Orally Kimberly Harris Vitamin B12 1 tablet Orally Active 100 MCG Orally Once a day Kimberly Harris Vitamin D 1 tablet Orally Active 1000 UNIT Orally Once a day Kimberly Harris Clopidogrel Bisulfate take one tablet by mouth daily Orally Active 75 Orally daily Kimberly Harris Atenolol 1 tablet Orally Active 50 mg Orally Once a day Kimberly Harris Aspirin Adult Low Strength 1 tablet Orally Active 81 MG Orally Once a day Kimberly Harris Cod Liver Oil not defined Orally Active - Orally Kimberly Harris Vitamin E 1 capsule Orally Active 100 UNIT Orally Once a day Kimbelry Harris Clopidogrel Bisulfate 1 tablet PO Active 75 MG PO daily Kimberly Harris Atenolol 50 MG Oral Tablet atenolol 50 mg tablet Active [facility] atorvastatin 40 MG Oral Tablet atorvastatin 40 mg tablet Active [facility] clopidogrel 75 MG Oral Tablet clopidogrel 75 mg tablet Active [facility] Fluticasone propionate 0.05 MG/ACTUAT Metered Dose Nasal [place] fluticasone 50 mcg/actuation nasal spray,suspension [place] 1 spray twice a day by intranasal route as needed for 10 days. Active [facility] Lidocaine Hydrochloride 20 MG/ML Mucous Membrane Topical Solution Lidocaine Viscous 2 % mucosal solution Take 15 mL every 3 hours by oral route as needed. Active [facility] atorvastatin 10 MG Oral Tablet atorvastatin 10 mg tablet Active [facility] Amoxicillin 875 MG / Clavulanate 125 MG Oral Tablet [Augmentin] Augmentin 875 mg-125 mg tablet Take 1 tablet(s) every 12 hours by oral route for 7 days. Active [facility] Dextromethorphan 3 MG/ML / Promethazine Hydrochloride 1.25 MG/ML Oral Solution promethazine-DM 6.25 mg-15 mg/5 mL syrup Take 5 mL every 6 hours by oral route as needed. Active [facility] Hydrochlorothiazide 50 MG / Triamterene 75 MG Oral Tablet triamterene 75 mg-hydrochlorothiazide 50 mg tablet Active [facility] Allergies, Adverse Reactions, Alerts Substance Category Reaction Severity Reaction type Status Date Reported Comments Source N.K.D.A. Adverse Reaction Info Not Available Adverse Reaction Active 12/15/2016 Dottie Harris Immunizations Immunization Date Given Site Status Last Updated Comments Source influenza, unspecified formulation 05/25/2016 completed [facility] Tdap 07/25/2011 completed [facility] Results Order Name Results Value Reference Range Date Interpretation Comments Source RESULT negative 03/05/2017 [facility] SWAB LOCATION Left and Right tonsillar pillars 03/05/2017 [facility] Streptococcus pyogenes Ag [Presence] in Throat by Immunoassay RESULT negative 11/06/2015 [facility] Streptococcus pyogenes Ag [Presence] in Throat by Immunoassay [facility] LOCATION Left and Right tonsillar pillars 11/06/2015 [facility] Influenza A negative 11/06/2015 [facility] Influenza B negative 11/06/2015 [facility] Pathology Reports No Data Provided for This Section Diagnostic Reports No Data Provided for This Section Consultation Notes No Data Provided for This Section Discharge Summaries No Data Provided for This Section History and Physicals No Data Provided for This Section Vital Signs Vital Sign Value Date Comments Source Weight 231 09/28/2017 Dottie Harris Height 64 09/28/2017 Dottie Harris Temperature Oral (F) 96.5 F 09/28/2017 Dottie Harris Heart Rate 60 09/28/2017 Dottie Harris Diastolic (mm Hg) 76 09/28/2017 Dottie Harris Systolic (mm Hg) 120 09/28/2017 Dottie Harris Diastolic (mm Hg) 82 03/05/2017 [facility] Height 64 03/05/2017 [facility] Systolic (mm Hg) 122 03/05/2017 [facility] Weight 230 03/05/2017 [facility] Weight 225 12/15/2016 Dottie Harris Height 64 12/15/2016 Dottie Harris Temperature Oral (F) 97.1 F 12/15/2016 Dottie Harris Heart Rate 63 12/15/2016 Dottie Harris Diastolic (mm Hg) 80 12/15/2016 Dottie Harris Systolic (mm Hg) 132 12/15/2016 Dottie Harris Diastolic (mm Hg) 82 11/06/2015 [facility] Height 64 11/06/2015 [facility] Systolic (mm Hg) 134 11/06/2015 [facility] Weight 226 11/06/2015 [facility] Encounters Location Location Details Encounter Type Encounter Number Reason For Visit Attending Provider ADM Date DC Date Status Source MD EDA Gonzalez Unknown [id number] 09/11/2015 09/11/2015 MD EDA Dillard Unknown [id number] 09/11/2015 09/11/2015 MD EDA Dillard Unknown [id number] 09/11/2015 09/11/2015 MD EDA Dillard Unknown [id number] 09/11/2015 09/11/2015 MD EDA Dillard Unknown [id number] 09/11/2015 09/11/2015 MD EDA Dillard Unknown [id number] 09/11/2015 09/11/2015 MD EDA Dillard Unknown [id number] 09/11/2015 09/11/2015 MD EDA Dillard Unknown [id number] 09/11/2015 09/11/2015 MD EDA Dillard Unknown [id number] 09/11/2015 09/11/2015 Dottie Harris [place] - [facility] - [id number] Cinthia Bolton, CONTAINERS SALES REPRESENTATIVE: [address] [place] [address], Ph. [id number] Cinthia Bolton 11/03/2015 [facility] [place] - [facility] - [id number] Aby Alfonso, CONTAINERS SALES REPRESENTATIVE: [address] [place] [address], Ph. [id number] Aby Alfonso 11/06/2015 [facility] MD EDA Gonzalez Unknown [id number] 12/08/2015 12/08/2015 MD EDA Dillard Unknown [id number] 12/08/2015 12/08/2015 MD EDA Dillard Unknown [id number] 12/19/2015 12/19/2015 Dottie Harris MD [place] Unknown [id number] 12/19/2015 12/19/2015 MD EDA Dillard Unknown [id number] 12/19/2015 12/19/2015 MD EDA Dillard Unknown [id number] 03/16/2016 03/16/2016 Dottie Harris [place] - [facility] - [id number] Shen, [facility]: [address] [facility] [place] [address], Ph. [id number] Porsha Shen 03/05/2017 [facility] Procedures Procedure Code Date Perfomer Comments Source Appendectomy [facility] Assessment and Plan No Data Provided for This Section Plan of Care No Data Provided for This Section Social History Social History Date Source Smoking Status Never Smoker 11/03/2015 [facility] Social History ElementQualifiersDate Reported Smoking . Status Never Smoker October 20, 2015 Alcohol Use No. October 20, 2015 Alcohol Screening: No. Did you have a drink containing alcohol in the past year?: No, Points: 0, Interpretation: Negative October 20, 2015 Marital Status: . October 20, 2015 Do you drink alcohol? No. 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
--- OUTSIDE RECORDS SUMMARY | 2019-03-20 12:05 | XMS REPORT ---
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.119 Active Problem [...] Problem Abnormal EKG R94.31 Active Problem CAD, [place] Coronary Artery 414.01 Active Problem PTCA Status V45.82 Active Problem Abnormal EKG 794.31 Active Problem HTN heart dis benign, without CHF 402.10 Active Problem [place] (dyspnea on exertion) R06.09 Active Problem CAD in [place] artery I25.10 Active Problem Claudication 443.9 Active Problem Atypical chest pain R07.89 Active Problem Carotid Bruit 785.9 Active Problem Hypertensive heart disease without heart failure I11.9 Active Medications Medication Code System Code Instructions Start Date End Date Status Dosage Atenolol [facility] [address]-78 50 mg Orally Once a day Active [...] alcohol? No. 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
--- OUTSIDE RECORDS SUMMARY | 2019-03-20 12:05 | XMS REPORT ---
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.119 Active Problem [...] Problem Abnormal EKG R94.31 Active Problem CAD, [place] Coronary Artery 414.01 Active Problem PTCA Status V45.82 Active Problem Abnormal EKG 794.31 Active Problem HTN heart dis benign, without CHF 402.10 Active Problem [place] (dyspnea on exertion) R06.09 Active Problem CAD in [place] artery I25.10 Active Problem Claudication 443.9 Active Problem Atypical chest pain R07.89 Active Problem Carotid Bruit 785.9 Active Problem Hypertensive heart disease without heart failure I11.9 Active Medications Medication Code System Code Instructions Start Date End Date Status Dosage Atorvastatin Calcium MEDISPAN [address]-20 40 MG Orally Once a day Active [...] alcohol? No. 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
[2019-03-20] MEDS ORDERED: ASPIRIN 81 MG CHEW TAB PO ONE ×2 (12:45→14:15)
[2019-03-20 12:48] LABS: BASOPHILS # (AUTO) 0.1 (0.0-0.1); BASOPHILS % 0.9 % (0.0-1.0); EOSINOPHILS # (AUTO) 0.1 (0.0-0.4); EOSINOPHILS % 0.8 % (0.0-6.0); HEMATOCRIT 36.6 % (34.2-44.1); HEMOGLOBIN 12.7 g/dL (12.0-16.0); LYMPHOCYTES # (AUTO) 2.3 (1.0-3.2); LYMPHOCYTES % 24.3 % (18.0-39.1); MEAN CORPUSCULAR HEMOGLOBIN 28.9 pg (28-32); MEAN CORPUSCULAR HGB CONC 34.7 g/dL (31-35); MEAN CORPUSCULAR VOLUME 83.2 fL (81-99); MONOCYTES # (AUTO) 0.7 (0.2-0.8); MONOCYTES % 6.8 % (4.4-11.3); NEUTROPHILS # (AUTO) 6.4 (2.1-6.9); NEUTROPHILS % 66.9 % (38.7-80.0); PLATELET COUNT 309 x10e3/uL (140-360); RED CELL DISTRIBUTION WIDTH 13.1 % (11.7-14.4)
[2019-03-20 13:04] LABS: INR 0.87; PARTIAL THROMBOPLASTIN TIME 28.3 seconds (23.8-35.5); PROTHROMBIN TIME 12.3 seconds (11.9-14.5)
[2019-03-20 13:14] LABS: ALANINE AMINOTRANSFERASE 13 IU/L (0-55); ALBUMIN 3.7 g/dL (3.5-5.0); ALBUMIN/GLOBULIN RATIO 1.4 (0.8-2.0); ALKALINE PHOSPHATASE 70 IU/L (40-150); ANION GAP 14.4 mmol/L (8-16); BLOOD UREA NITROGEN 12 mg/dL (7-26); BUN/CREATININE RATIO 15 (6-25); CALCIUM 9.8 mg/dL (8.4-10.2); CARBON DIOXIDE 28 mmol/L (22-29); CHLORIDE 96 mmol/L (98-107); CREATINE KINASE 88 IU/L (29-168); CREATININE, SERUM 0.82 mg/dL (0.57-1.11); EST GLOMERULAR FILTRATION RATE > 60 ML/MIN (60-); GLUCOSE 98 mg/dL (74-118); POTASSIUM 3.4 mmol/L (3.5-5.1); SODIUM 135 mmol/L (136-145)
--- NOTE | 2019-03-20 13:25 | Diagnostic Imaging Report ---
EXAM: CHEST SINGLE (PORTABLE) DATE: 03/20/2019 12:34 PM INDICATION: Chest pain COMPARISON: None FINDINGS: The trachea is midline. The lungs are symmetrically expanded without evidence for focal consolidation, pneumothorax, or significant pleural effusion. The cardiomediastinal silhouette is within normal limits. Partially visualized cervical fusion hardware is noted. No acute osseous abnormalities identified. IMPRESSION: No acute cardiopulmonary process identified. Signed by: Dr. Gurwinder Velasquez MD on 03/20/2019 1:22 PM
--- NOTE | 2019-03-20 13:36 | NUR ---
DOUGLAS WAN AT BEDSIDE FOR PT EVAL AT THIS TIME.
[2019-03-20] MEDS ORDERED: SODIUM CHLORIDE 0.9% 1000ML 1,000 ML IV SCH (13:54)
[2019-03-20] MEDS ORDERED: VERAPAMIL HCL 2.5 MG/ML 2 ML VIAL IV ONE (13:55)
[2019-03-20] MEDS ORDERED: MORPHINE SULFATE 2 MG/ML SYR 1ML IV PRN (14:00)
[2019-03-20] MEDS ORDERED: ONDANSETRON HCL INJ 2MG/ML 2ML 2 MG/ML VIAL IV PRN ×2 (14:00→17:15)
[2019-03-20 14:14] LABS: BILIRUBIN,URINE NEGATIVE (NEGATIVE); CLARITY,URINE CLEAR (CLEAR); COLOR,URINE YELLOW (YELLOW); KETONES,URINE NEGATIVE (NEGATIVE); LEUKOCYTE ESTERASE ,URINE NEGATIVE (NEGATIVE); NITRITE,URINE NEGATIVE (NEGATIVE); PROTEIN,URINE DIPSTICK NEGATIVE (NEGATIVE); URINE UROBILINOGEN 0.2 mg/dL (0.2 - 1)
[2019-03-20 14:36] LABS: BACTERIA,URINE MODERATE /HPF; EPITHELIAL CELLS,URINE RARE /LPF
--- NOTE | 2019-03-20 14:44 | NUR ---
PT INFORMED OF PLAN OF CARE, UPDATED ON CURRENT BED STATUS AND AWAITING INPATIENT BED, OFFERED MEDICAITONS TO COVER PAIN AT THIS TIME, DENIES NEED FOR COVERAGE, STATES "I DO NOT LIKE TO TAKE PAIN MEDICATIONS".
--- OUTSIDE RECORDS SUMMARY | 2019-03-20 15:24 | XMS REPORT | Continuity of Care Document ---
Author Author [employer] Organization [facility] Address Unknown Phone Unavailable Care Team Providers Care Safety Net Maker Name Role Phone [employer] Unavailable Unavailable Problems Problem Status Onset Date Classification Date Reported Comments Source Sore throat symptom 03/05/2017 Diagnosis 03/05/2017 [facility] Dysfunction of eustachian tube 03/05/2017 Diagnosis 03/05/2017 [facility] Atherosclerosis of [place] coronary artery of [place] heart with angina pectoris Active Problem 04/27/2018 [...] EKG Active Diagnosis 04/27/2018 Dottie Harris CAD, [place] Coronary Artery Active Problem 03/17/2016 Dottie Harris PTCA Status Active Problem 03/17/2016 Dottie Harris Abnormal EKG Active Problem 03/17/2016 Dottie Harris HTN heart dis benign, without CHF Active Problem 03/17/2016 Dottie Harris [place] (dyspnea on exertion) Active Problem 04/27/2018 Dottie Harris CAD in [place] artery Active Problem 04/27/2018 Dottie Harris Claudication [...] Active 100 UNIT Orally Once a day Kimberly Harris Clopidogrel Bisulfate 1 tablet PO Active 75 MG PO daily Kimberly Harris Atenolol 50 MG Oral Tablet atenolol 50 mg tablet Active [facility] atorvastatin 40 MG Oral Tablet atorvastatin 40 mg tablet Active [facility] clopidogrel 75 MG Oral Tablet clopidogrel 75 mg tablet Active [facility] Fluticasone propionate 0.05 MG/ACTUAT Metered Dose Nasal [facility] [place] fluticasone 50 mcg/actuation nasal spray,suspension [facility] 1 spray twice a day by intranasal [...] Date Status Source MD EDA Gonzalez Unknown [id number] 09/11/2015 09/11/2015 MD EDA Dillard Unknown [id number] 09/11/2015 09/11/2015 MD EDA Dillard Unknown [id number] 09/11/2015 09/11/2015 MD EDA Dillard Unknown [id number] 09/11/2015 09/11/2015 MD EDA Dillard Unknown [id number] 09/11/2015 09/11/2015 MD EDA Dillard Unknown [id number] 09/11/2015 09/11/2015 MD EDA Dillard Unknown [id number] 09/11/2015 09/11/2015 MD EDA Dillard Unknown [id number] 09/11/2015 09/11/2015 MD EDA Dillard Unknown [id number] 09/11/2015 09/11/2015 Dottie Harris [place] - [facility] - [id number] Cinthia Bolton, [place]: [address] [place] [address], Ph. [id number] Cinthia Bolton 11/03/2015 [facility] [place] - [facility] - [id number] Aby Alfonso, [place]: [address] [place] [address], Ph. [id number] Aby Alfonso 11/06/2015 [facility] MD EDA Gonzalez Unknown [id number] 12/08/2015 12/08/2015 MD EDA Dillard Unknown [id number] 12/08/2015 12/08/2015 MD EDA Dillard Unknown [id number] 12/19/2015 12/19/2015 Dottie Harris MD PA Unknown [id number] 12/19/2015 12/19/2015 MD EDA Dillard Unknown [id number] 12/19/2015 12/19/2015 MD EDA Dillard Unknown [id number] 03/16/2016 03/16/2016 Dottie Harris [place] - [facility] - [id number] Shen, [facility]: [address] [facility] [place] [address], Ph. [id number] Porsha Shen 03/05/2017 [facility] Procedures Procedure Code [...] alcohol? No. 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
--- NOTE | 2019-03-20 15:45 | NUR ---
DR. SHORT AT BEDSIDE FOR PT EVAL.
[2019-03-20 15:46] LABS: CHOL/HDL RATIO 3.9 (3.0-3.6)
[2019-03-20] MEDS ORDERED: CLOPIDOGREL BISULFATE 75 MG TAB PO NR (16:00)
[2019-03-20 16:05] LABS: THYROID STIMULATING HORMONE 0.809 uIU/mL (0.350-4.940)
--- NOTE | 2019-03-20 16:05 | NUR ---
DR. SHORT REQUESTING TO OBTAIN CONSENT FOR CARDIAC CATH STAT; RISKS, BENEFITS, AND ALTERNATIVE TREATMENTS WERE EXPLAINED IN FULL BY DELI WORKER. WILL OBTAIN WITNESS FOR INFORMED CONSENT.
[2019-03-20] MEDS ORDERED: MIDAZOLAM HCL 2 MG/2 ML VIAL ONE (16:08)
[2019-03-20] MEDS ORDERED: FENTANYL CITRATE/PF 100MCG/2 ML INJ ONE (16:09)
[2019-03-20] MEDS ORDERED: LIDOCAINE HCL 2% LOCAL 20 ML VIAL ONE (16:09)
[2019-03-20] MEDS ORDERED: IOPAMIDOL 370 MG/ML 200 ML INFUS..BTL INJ ONE (16:10)
[2019-03-20] MEDS ORDERED: HEPARIN SOD/SOD CHLORIDE 2,000 ML ONE (16:10)
--- NOTE | 2019-03-20 16:10 | NUR ---
DR. Mariann SHORT AT BEDSIDE EXPLAINING PROCEDURE IN DETIAL, ADVERTISING AGENT NURSE LAURYN WATSON AT BEDSIDE OBTAINING CONSENT.
[2019-03-20] MEDS ORDERED: ONDANSETRON HCL INJ 2MG/ML 2ML 2 MG/ML VIAL ONE (16:32)
[2019-03-20] MEDS ORDERED: HYDROCODONE/APAP 5MG-325MG TAB PO PRN (17:15)
--- NOTE | 2019-03-20 18:51 | Consultation ---
DATE OF CONSULTATION: 03/20/2019 REASON FOR CONSULTATION: Chest pain. CHIEF COMPLAINT: Chest pain. HISTORY OF PRESENT ILLNESS: This is a 68-year-old female with history of hypertension, hyperlipidemia, CAD, status post PCI in October 2012 to the LAD using a Resolute Integrity stent 2.5 x 18. The patient presents to [facility] ER with complaints of chest pain. Cardiology was consulted to evaluate the patient. The patient is seen in the ER with daughter at the bedside. The patient reports has been having some chest pains for the past 2 to 3 days, retrosternal pressure, tightness in nature, radiating to her back. Reports the symptoms similar to her chest pain back in 2013, prior to getting her stent. The patient thought her pain was indigestion and took some medication [id number] medication without relief; therefore, came to the ER for further evaluation. The patient reports the pain comes and goes, however, has been getting worse in the past day or so. The patient reports being compliant with her anti-platelet, statin, beta-nicholas therapy, and tolerating management. Long discussion with the patient and daughter regarding treatment options. The patient is requesting for definitive ischemic evaluation, a left heart catheterization given her similar symptoms prior to her stay in 2012. PAST MEDICAL HISTORY: 1. Hypertension. 2. Hyperlipidemia. 3. Obesity. 4. Coronary artery disease, status post PCI in 2012 with a Resolute stent and a bare metal 2.5 x 18. 5. Reflux. 6. Degenerative joint disease. PAST SURGICAL HISTORY: Cervical spine surgery in 2007, hysterectomy in 1999, appendectomy, and left heart catheterization in 2012. HOME MEDICATIONS: Include aspirin 81 mg once a day, Plavix 75 mg once a day, atorvastatin 40 mg a day, atenolol 50 mg once a day, triamterene/hydrochlorothiazide 75-50 mg once daily. ALLERGIES: NO KNOWN ALLERGIES. REVIEW OF SYSTEMS: GENERAL: Denies any weight changes, fatigue, weakness, fevers, chills, or night sweats. SKIN: No rashes or bruises reported. HEENT: Positive for nausea in the past day or so. Denies any vomiting, vision changes, any blurred vision, double vision, earaches, tinnitus, epistaxis, sore throat, swollen neck, or hoarseness. CARDIAC: Chest pain as above. Positive for dyspnea on exertion. Positive for shortness of breath. Denies any orthopnea, PND, or lower extremity edema. RESPIRATORY: Positive for shortness of breath. Denies any hemoptysis. GI: Reports good appetite. Positive for nausea. Denies any vomiting. Denies any constipation, diarrhea, melena, hematochezia. URINARY: Denies any frequency, urgency, hematuria, or dysuria. VASCULAR: Denies any lower extremity edema. Denies any claudication. MUSCULOSKELETAL: Positive joints, back pains, or joint pains. NEUROLOGIC: Denies any numbness, tingling, weakness, paralysis, fainting, blackouts, or seizures. HEMATOLOGY: Denies any anemia or bruising. ENDOCRINE: Denies any heat or cold intolerance. No polyuria, polydipsia, or polyphagia. PHYSICAL EXAMINATION: VITAL SIGNS: Height 64 inches, weight 233 pounds, BMI 40. Temperature 98.8, pulse 57, respiratory rate 18, blood pressure 140/69, and pulse ox 100% on room air. GENERAL: Appears stated age, reliable informant, in no acute distress. SKIN: No rashes or bruises noted. HEENT: Normocephalic. Pupils are equal and reactive. Extraocular movements intact. Trachea midline. No JVD. No carotid bruit noted. Oral mucosa pink. HEART: Regular rate and rhythm. PMI about 4th and 5th intercostal space. LUNGS: Bilateral breath sounds, clear to auscultation. ABDOMEN: Soft, nontender, nondistended. No organomegaly noted. MUSCULOSKELETAL: Good muscle strength throughout. Trace lower extremity edema. VASCULAR: +2 bilateral radial pulses, +2 DP and PT pulses bilaterally. NEUROLOGIC: Cranial nerves II through XII seem intact. LABORATORY DATA: Sodium 135, potassium 3.4, BUN 12, creatinine 0.8. Troponin 0.014. BNP 54. Hematology; white blood cell 9.5, hemoglobin 12, hematocrit 36, and platelets 309. PT 12, PTT 28. Chest x-ray, no acute abnormalities noted. EKG, sinus Pedro, no acute changes noted. ASSESSMENT AND PLAN: 1. Coronary artery disease with angina, typical in nature. 2. Hypertension. 3. Hyperlipidemia. 4. Palpitations. 5. Obesity. PLAN: 1. The patient presents with typical chest pain symptoms similar to chest pain prior to her stent in 2012, with worsening symptoms, more progressive in nature and also more intense in nature. Long discussion with the patient regarding treatment options. The patient is requesting definitive ischemic evaluation with left heart catheterization. Risks and benefits discussed at length with the patient and daughter. Questions answered. The patient is agreeable to left heart catheterization. 2. We will go ahead and load the patient with Plavix. 3. We will continue the patient's home cardiac therapy, aspirin, Plavix, statin, beta-nicholas therapy. 4. We will go ahead and get an echo to evaluate heart function and structure. 5. We will continue the patient's tele monitoring given occasional palpitations reported. 6. We will go ahead and obtain a lipid panel and TSH. 7. N.p.o. after midnight. 8. Further recommendations as clinical course. Thank you very much for this consult. Dictated by Berhane Hathaway NP Dottie Harris MD DC/SHRADDHA /[id number]
--- NOTE | 2019-03-20 19:00 | NUR ---
RECEIVED PATIENT IN BEDSIDE REPORT. PATIENT LAYING FLAT PER S/P HEART CATH ORDERS. DRESSING TO R GROIN IS C/D/I. BRUISING SURROUNDING DRESSING, TISSUE IS SOFT AND NON-TENDER. BILATERAL FOOT PULSES ARE PALPABLE, CAP REFILL < 3 SEC. NO COMPLAINTS AT THIS TIME. BED LOCKED IN LOWEST POSITION, SIDE RAILS UPX2, CALL LIGHT IN REACH.
--- NOTE | 2019-03-20 20:38 | NUR ---
SPOKE WITH MD Marc SHORT TO DETERMINE IF HE STILL WANTS CARDIAC MARKERS DRAWN. ORDERS TO D/C THEM. UPDATED HIM ON PATIENT'S CONDITION. WILL CONTINUE TO MONITOR.
--- NOTE | 2019-03-20 20:51 | Operative Report ---
DATE OF PROCEDURE: 03/20/2019 SURGEON: Chaparro Harris MD REPORT TITLE: Cardiac Catheterization PROCEDURES PERFORMED: 1. Left heart cardiac catheterization, coronary angiography. 2. Left ventriculography. INDICATION FOR PROCEDURE: A 68-year-old lady, with history of hypertension, hypercholesteremia, coronary artery disease with prior history of LAD, PCI back in 2012, who has been having chest pain symptoms at rest, concerning for class 4 and continues to have ongoing chest discomfort. The patient was seen in the emergency room and in light of ongoing symptoms and high pretest probability were concern for unstable coronary syndrome. DESCRIPTION OF PROCEDURE: After risks, benefits, and pros and cons of today's procedure were explained, the patient agreed to proceed. The patient was brought to the cardiac catheterization laboratory in an urgent fashion from the emergency room where the wrist and groin were prepped and draped in the usual sterile fashion. A 1% lidocaine solution was used to numb the right wrist region. Access of the right radial artery was obtained utilizing the micropuncture needle. However, upon insertion of the wire, there was notable tortuosity in the right forearm. We looked at the wire under fluoroscopy and noting the tortuosity without any issue of passage proximally. We decided not to push the wire and removed all our equipment and abort this approach. No access was obtained through the wrist. At that point in time, the right groin was prepped and draped in usual sterile fashion. A 1% lidocaine solution was used to numb the right groin region and access of right femoral artery was obtained, and a 4-Portuguese short femoral sheath was placed. Selective coronary angiography of the [place] left and right coronary artery was performed with JL4 and 3DRC diagnostic catheters respectively. Angled pigtail catheter was placed in the ventricle for ventriculography and hemodynamic assessment of ventricular filling pressures. After noting patent LAD stent and no significant disease in the other vessels, we decided to conclude the case. At the conclusion of the case, the femoral sheath was removed and manual compression was applied achieving hemostasis. COMPLICATIONS: None. ESTIMATED BLOOD LOSS: None. FINDINGS: 1. Left main is angiographically normal, gives rise to an LAD and circumflex branch. 2. The LAD has a proximal mid LAD stent that is widely patent. The remainder of the coronary artery and branches are angiographically normal. 3. Left circumflex artery essentially terminates into a mid marginal branch. This vessel and its branches are angiographically normal. 4. The right coronary artery is dominant, gives rise to right PDA and right PLV branch. This vessel and its branches are angiographically normal. 5. Left ventricular ejection fraction is 55% to 60%. End-diastolic pressure is 18 mmHg. There is no significant LV to aortic pullback gradient. 6. Right lower extremity pain. PLAN/RECOMMENDATIONS: 1. Aggressive risk factor modification and medical therapy. 2. A 5-hour bedrest post heart catheterization today. 3. Overnight observation. MD LORENE Mclean/SHRADDHA /[id number]
[2019-03-20] MEDS ORDERED: ATORVASTATIN 20 MG TAB PO SCH (21:00)
--- NOTE | 2019-03-20 23:44 | NUR ---
PATIENT IS 6 HOURS POST HEMOSTASIS. ASSISTED PATIENT TO SIT UP IN BED. DRESSING C/D/I BEFORE AND AFTER. ASSISTED PATIENT TO RESTROOM, STEADY GAIT NOTED. PATIENT VOIDED AND AMBULATED BACK TO BED. DRESSING CONTINUES TO BE C/D/I, NO PAIN REPORTED. WILL CONTINUE TO MONITOR. BED LOCKED IN LOWEST POSITION, SIDE RAILS UPX2, CALL LIGHT IN REACH.
[2019-03-21] VITALS: BP 122/58
[2019-03-21] MEDS: SODIUM CHLORIDE 0.9% 1000ML 1,000 ML IV SCH ×2 (00:49→03:09)
[2019-03-21 03:30] VITALS: BP 123/59
--- NOTE | 2019-03-21 03:30 | NUR ---
PATIENT RESTING AT THIS TIME. NO PAIN REPORTED. DRESSING TO R GROIN C/D/I. BILAT FOOT PULSES PALPABLE. NO S&S OF DISTRESS NOTED. BED LOCKED IN LOWEST POSITION, SIDE RAILS UPX2, CALL LIGHT IN REACH.
[2019-03-21 06:11] LABS: BASOPHILS # (AUTO) 0.1 (0.0-0.1); BASOPHILS % 0.7 % (0.0-1.0); EOSINOPHILS # (AUTO) 0.1 (0.0-0.4); EOSINOPHILS % 0.6 % (0.0-6.0); HEMATOCRIT 31.8 % (34.2-44.1); HEMOGLOBIN 10.7 g/dL (12.0-16.0); MEAN CORPUSCULAR HEMOGLOBIN 28.5 pg (28-32); MEAN CORPUSCULAR HGB CONC 33.6 g/dL (31-35); MEAN CORPUSCULAR VOLUME 84.6 fL (81-99); MONOCYTES # (AUTO) 0.5 (0.2-0.8); MONOCYTES % 5.6 % (4.4-11.3); NEUTROPHILS # (AUTO) 5.8 (2.1-6.9); NEUTROPHILS % 68.7 % (38.7-80.0); PLATELET COUNT 256 x10e3/uL (140-360); RED BLOOD COUNT 3.76 x10e6/uL (3.6-5.1); RED CELL DISTRIBUTION WIDTH 13.2 % (11.7-14.4)
[2019-03-21 06:23] LABS: ALANINE AMINOTRANSFERASE 11 IU/L (0-55); ALBUMIN 3.1 g/dL (3.5-5.0); ALBUMIN/GLOBULIN RATIO 1.3 (0.8-2.0); ALKALINE PHOSPHATASE 56 IU/L (40-150); ANION GAP 12.5 mmol/L (8-16); BLOOD UREA NITROGEN 14 mg/dL (7-26); BUN/CREATININE RATIO 18 (6-25); CALCIUM 8.9 mg/dL (8.4-10.2); CARBON DIOXIDE 27 mmol/L (22-29); CHLORIDE 100 mmol/L (98-107); CREATININE, SERUM 0.77 mg/dL (0.57-1.11); EST GLOMERULAR FILTRATION RATE > 60 ML/MIN (60-); GLUCOSE 110 mg/dL (74-118); POTASSIUM 3.5 mmol/L (3.5-5.1); SODIUM 136 mmol/L (136-145)
--- NOTE | 2019-03-21 06:27 | Diagnostic Imaging Report ---
Examination: Single AP view of the chest. COMPARISON: 03/20/2019 INDICATION: Chest pain DISCUSSION: The lungs remain well-inflated and without focal airspace consolidation, pleural effusion, or pneumothorax. Stable cardiomediastinal contour with tortuosity of the thoracic aorta. No pulmonary edema. No acute osseous abnormality. Cervical spine fusion hardware partially visualized. IMPRESSION: No acute cardiopulmonary abnormality. Signed by: Dr. Berhane Sevilla M.D. on 03/21/2019 6:24 AM
--- NOTE | 2019-03-21 07:11 | NUR ---
received patient lying in bed with eyes open and Resp even and unlabored. TV on. no c/o pain at this time. call light within reach.
[2019-03-21 07:35] VITALS: BP 141/65
[2019-03-21 08:18] VITALS: BP 141/65
[2019-03-21] MEDS ORDERED: ASPIRIN 81 MG ENTERIC COATED PO SCH ×2 (09:00)
[2019-03-21] MEDS ORDERED: ATENOLOL 50 MG TAB PO SCH (09:00)
[2019-03-21] MEDS ORDERED: TRIAMTERENE/HCTZ 37.5-25 MG TAB PO SCH (09:00)
[2019-03-21] MEDS ORDERED: CLOPIDOGREL BISULFATE 75 MG TAB PO SCH (09:00)
[2019-03-21] MEDS ORDERED: ONDANSETRON HCL 4 MG ORAL DISINTEGRATING TAB PO PRN (09:45)
--- NOTE | 2019-03-21 11:50 | NUR ---
Transported patient via wheelchair to private auto for discharge to home. Respiration even and unlabored without SOB.
[2019-03-21] MEDS ORDERED: ATORVASTATIN 40 MG TAB PO SCH (21:00)
== END 2019-03-21 11:49 | disposition home or self-care (01) ==
LOC: ER 12:02 → ERHOLD 13:54 → MED/SURG 17:15
DX: I25.110 Atherosclerotic heart disease of native coronary artery with unstable angina pectoris (principal); I34.0 Nonrheumatic mitral (valve) insufficiency; I07.1 Rheumatic tricuspid insufficiency; Z95.5 Presence of coronary angioplasty implant and graft; M19.90 Unspecified osteoarthritis, unspecified site; I10 Essential (primary) hypertension; E78.5 Hyperlipidemia, unspecified; K21.9 Gastro-esophageal reflux disease without esophagitis; E66.9 Obesity, unspecified; Z68.41 Body mass index [BMI] 40.0-44.9, adult
CPT/HCPCS: 36415 ×2; 71045 ×2; 80053 ×2; 80061; 81001; 82550; 82553; 83880; 84443; 84484; 85025 ×2; 85610; 85730; 93005; 93306; 93458; 99284; G0378 ×2; J2001; J2250; J2405; J3010; J7030 ×2; Q9967; 85027; C1766; C1769; C1887

== ENCOUNTER → 2020-04-25 | Outpatient (CLI) | payer MEDICARE, OTHER ==
[~2020-04-25] MED LIST changes: +ASPIRIN81 MG PO; +IBUPROFEN200 MG PO; +NORCO 7.5-3251 EACH PO; +VITAMIN B122500 MCG PO
== END ==
LOC: MRI 08:29
PROVIDERS: ATTEND Family Medicine
DX: M47.26 Other spondylosis with radiculopathy, lumbar region (principal)
CPT/HCPCS: 72148

== ENCOUNTER 2020-05-15 05:21 | Observation (INO) | payer MEDICARE, OTHER ==
--- NOTE | 2020-05-12 10:30 | Diagnostic Imaging Report ---
Exam: CHEST 2 VIEWS Date: 05/12/2020 10:26 AM INDICATION: ^[id number] ^[id number] ^PRE-OP Comparison: 03/21/2019 FINDINGS: Lines/Tubes:None Lungs:The lungs are well inflated. No focal consolidation or pulmonary edema. Pleura:No pleural effusion. No pneumothorax. Heart/Mediastinum:The cardiomediastinal silhouette is normal in size and contour. Bones/Soft Tissues: No acute osseous abnormality. Mild to moderate multilevel degenerative changes of the spine are noted. Upper abdomen: Unremarkable. IMPRESSION: Negative for acute intrathoracic process. Signed by: Scar Walter MD on 05/12/2020 10:26 AM
[2020-05-12 10:31] LABS: BASOPHILS # (AUTO) 0.1 (0.0-0.1); BASOPHILS % 1.2 % (0.0-1.0); EOSINOPHILS # (AUTO) 0.1 (0.0-0.4); EOSINOPHILS % 1.2 % (0.0-6.0); HEMATOCRIT 37.4 % (34.2-44.1); HEMOGLOBIN 12.7 g/dL (12.0-16.0); LYMPHOCYTES % 28.7 % (18.0-39.1); MEAN CORPUSCULAR HEMOGLOBIN 28.9 pg (28-32); MONOCYTES # (AUTO) 0.5 (0.2-0.8); MONOCYTES % 7.5 % (4.4-11.3); NEUTROPHILS # (AUTO) 4.2 (2.1-6.9); NEUTROPHILS % 61.3 % (38.7-80.0); PLATELET COUNT 313 x10e3/uL (140-360)
[2020-05-12 10:45] LABS: INR 0.87; PROTHROMBIN TIME 12.3 seconds (11.9-14.5)
[2020-05-12 10:46] LABS: PARTIAL THROMBOPLASTIN TIME 28.1 seconds (23.8-35.5)
[2020-05-12 10:51] LABS: ANION GAP 14.9 mmol/L (8-16); CALCIUM 9.5 mg/dL (8.4-10.2); CREATININE, SERUM 1.03 mg/dL (0.57-1.11); POTASSIUM 3.9 mmol/L (3.5-5.1)
[2020-05-15] VITALS (7 sets, daily range): BP systolic 144–156; BP diastolic 70–78
[~2020-05-15] VITALS: Ht 162.6 cm; Wt 106.6 kg
[~2020-05-15 05:21] MED LIST changes: -IBUPROFEN200 MG PO; -NORCO 7.5-3251 EACH PO
[2020-05-15] MEDS ORDERED: IBUPROFEN200 MG PO (05:48)
[2020-05-15] MEDS ORDERED: CEFAZOLIN SOD 1 GM/NS 50ML 100 ML IV ONE (05:58)
[2020-05-15] MEDS ORDERED: LIDOCAINE 1% W/EPINEPHRINE 20 ML VIAL ONE (06:47)
[2020-05-15] MEDS ORDERED: VANCOMYCIN HCL 1 GM VIAL ONE (06:47)
[2020-05-15] MEDS ORDERED: THROMBIN FOR SOLN 5,000 UNIT VIAL ONE (06:47)
[2020-05-15] MEDS ORDERED: LIDOCAINE HCL (LTA) 4 ML SOLN ONE (07:07)
[2020-05-15] MEDS ORDERED: IBUPROFEN 800MG/ 200ML 200 ML IV ONE (07:08)
[2020-05-15] MEDS: TRIAMTERENE 50 MG PO SCH (09:00)
[2020-05-15] MEDS ORDERED: PROMETHAZINE HCL (IM) 25 MG/ML VIAL IM PRN (09:00)
[2020-05-15] MEDS ORDERED: LACTATED RINGER'S 1,000 ML IV SCH (09:00)
[2020-05-15] MEDS ORDERED: MORPHINE SULFATE 5 MG/ML VIAL IM PRN (09:00)
[2020-05-15] MEDS ORDERED: HYDROMORPHONE 2MG/ML 2 MG/ML ML IV PRN (09:00)
[2020-05-15] MEDS ORDERED: ACETAMINOPHEN 325 MG TAB PO PRN (09:00)
[2020-05-15] MEDS ORDERED: ONDANSETRON HCL INJ 2MG/ML 2ML 2 MG/ML VIAL IV PRN (09:00)
[2020-05-15] MEDS ORDERED: OXYCODONE/ACETAMINOPHEN 5-325 1 EACH TABLET PO PRN (09:00)
[2020-05-15] MEDS: MULTIVITAMINS/MINERALS TAB PO SCH (09:00)
[2020-05-15] MEDS: ATENOLOL 50 MG TAB PO SCH (09:00)
[2020-05-15] MEDS ORDERED: MAGNESIUM/ALUMINUM/SIMETHICONE 30 ML UDC PO PRN (09:00)
[2020-05-15] MEDS ORDERED: CARISOPRODOL 350 MG TAB PO PRN (09:00)
--- NOTE | 2020-05-15 09:56 | Diagnostic Imaging Report ---
EXAMINATION: Lumbar spine radiographs - 1 views CLINICAL HISTORY: Left L2-L3 disc herniation COMPARISON: Lumbar spine MRI 04/25/2020 DISCUSSION: Limited intraoperative single cross table radiograph of the lumbar spine. Anterior majority of the lumbar vertebral bodies are obscured by overlying artifact. Linear radiopaque surgical markers overlie the lumbar spine at the level of L2. No acute osseous abnormality visualized given exam limitations. Multilevel degenerative changes. IMPRESSION: 1. Limited intraoperative cross table radiograph of the lumbar spine with linear radiopaque marker overlying the level of L2. Signed by: Dr. Steve Pompa M.D. on 05/15/2020 9:53 AM
--- NOTE | 2020-05-15 09:58 | Diagnostic Imaging Report ---
EXAMINATION: Lumbar spine radiographs - 1 views CLINICAL HISTORY: Left L2-L3 disc herniation COMPARISON: Intraoperative lumbar spine radiograph performed earlier on the same day (05/15/2020), Lumbar spine MRI 04/25/2020 DISCUSSION: Limited intraoperative single cross table radiograph of the lumbar spine. Linear metallic surgical marker overlies the posterior spinal elements at the level of L2-L3. Additional metallic surgical clamp overlies the posterior soft tissues of the upper lumbar spine.. No acute osseous abnormality visualized given exam limitations. Multilevel degenerative changes. IMPRESSION: Limited intraoperative cross table radiograph of the lumbar spine with linear metallic marker overlying the posterior spinal elements at the level of L2-L3. Signed by: Dr. Steve Pompa M.D. on 05/15/2020 9:55 AM
--- NOTE | 2020-05-15 10:10 | NUR ---
Admitted to room 106. In no apparent distress. Daughter at bedside. Dressing to back CDI. C/O sore throat and some discomfort to incision. Will cont to monitor
[2020-05-15] MEDS: CEPACOL SORE THROAT LOZENGES PO PRN ×2 (11:51→15:02)
--- NOTE | 2020-05-15 11:51 | Operative Report ---
DATE OF PROCEDURE: 05/15/2020 SURGEON: Juanpablo Farah MD PREOPERATIVE DIAGNOSIS: Left L2-3 disk herniation, M51.16. POSTOPERATIVE DIAGNOSIS: Left L2-3 disk herniation, M51.16. PROCEDURES: Left L2-3 laminotomy, medial facetectomy, and microsurgical diskectomy. INDICATIONS: The patient is a 70-year-old woman, who presents with a left L2-3 disk herniation with superior migration of the extruded disk fragment behind the L2 vertebral body. She was taken to surgery for microsurgical diskectomy. PROCEDURE IN DETAIL: After induction of general anesthesia, the patient was placed on the operating table in prone position over a Raghu frame. Lumbar region was prepped and draped in sterile fashion. A preoperative x-ray was obtained. A small midline incision was created. Lumbar fascia was opened in left of midline and subperiosteal dissection was carried out to expose the left side of the L2 and L3 lamina and the medial aspect of the facet joint and second x-ray confirmed correct localization. The operating microscope was brought in. A high-speed drill equipped with ita bur was used to drill the inferior aspect of the lamina of L2 and the medial rim of the L2-3 facet joint. The ligamentum flavum was resected and the dural sac and the emerging traversing L3 nerve root and inferior margin of the L2 exiting nerve root were exposed. The herniated disk material came into view between the two nerve roots and above the level of the disk space. This was mobilized with a micro ball probe and removed the several fragments of disk with a micropituitary rongeur. Excellent decompression of the dural sac in the L2 and L3 nerve roots was thus achieved. The opening into the annulus of this was incised with a #11 blade and the loose contents of the disk were evacuated with curettes and pituitary instruments. Meticulous hemostasis was secured. Retractor was removed. The lumbar fascia was closed with 0 Vicryl sutures. Subcutaneous layer was closed with 2-0 Vicryl sutures. The skin was closed with 3-0 Monocryl sutures in subcuticular fashion. Steri-Strips and dressing were applied. The patient was awakened, extubated, and taken to postanesthesia care unit in stable condition. No intraoperative complications were encountered. Estimated blood loss was 10 mL. Juanpablo Farah MD PP/SHRADDHA /[id number]
--- NOTE | 2020-05-15 13:00 | NUR ---
Ambulated to bathroom with no difficulty and no complaints. Daughter at bedside. Ate lunch, no other complaints at this time
[2020-05-15] MEDS ORDERED: ROCURONIUM BROMIDE 10 MG/ML 5ML VIAL IV ONE (14:44)
[2020-05-15] MEDS ORDERED: NEOSTIGMINE 1 MG/ML 10ML VIAL ONE (14:44)
[2020-05-15] MEDS ORDERED: SEVOFLURANE INHAL SOLN 250 ML PEN BTL ONE (14:44)
[2020-05-15] MEDS ORDERED: ONDANSETRON HCL INJ 2MG/ML 2ML 2 MG/ML VIAL ONE (14:44)
[2020-05-15] MEDS ORDERED: LIDOCAINE HCL 2% LOCAL INJ 5 ML SDV VIAL INJ ONE (14:44)
[2020-05-15] MEDS ORDERED: DEXAMETHASONE SOD PHOS INJ 4 MG/ML VIAL ONE (14:44)
[2020-05-15] MEDS ORDERED: LIDOCAINE HCL 2% JELLY 5 ML TUBE ONE (14:44)
[2020-05-15] MEDS ORDERED: GLYCOPYRROLATE INJ 0.2 MG/ML VIAL ONE (14:44)
[2020-05-15] MEDS ORDERED: PROPOFOL IV EMULSION 10 MG/ML 20 ML VIAL ONE (14:44)
[2020-05-15] MEDS ORDERED: MIDAZOLAM HCL 2 MG/2 ML VIAL ONE (15:28)
[2020-05-15] MEDS ORDERED: FENTANYL CITRATE/PF 100MCG/2 ML INJ ONE (15:28)
--- NOTE | 2020-05-15 15:50 | NUR ---
Dozing on and off. Pedal pulses remain good and patient has full sensations and movement to bilat feet
--- NOTE | 2020-05-15 15:54 | NUR ---
2170 Patient tolerating PO . IV saline locked as ordered
[2020-05-15] MEDS: CEFAZOLIN SOD 1 GM/NS 50ML 50 ML IV SCH (16:56)
--- NOTE | 2020-05-15 19:00 | NUR ---
RECEIVED BEDSIDE SHIFT REPORT FROM PREVIOUS NURSE. CALL LIGHT WITHIN REACH. PATIENT IN BED. PATIENT IN NO PAIN OR DISTRESS.
[2020-05-15] MEDS ORDERED: ATORVASTATIN 40 MG TAB PO SCH (21:00)
[2020-05-15] MEDS ORDERED: ATORVASTATIN 10 MG TAB PO SCH (21:00)
[2020-05-15] MEDS ORDERED: ZOLPIDEM TARTRATE 5 MG TAB PO PRN (21:00)
[2020-05-16] MEDS: CEFAZOLIN SOD 1 GM/NS 50ML 50 ML IV SCH ×2 (00:17→08:53)
[2020-05-16 00:51] VITALS: BP 128/64
[2020-05-16 04:00] VITALS: BP 134/60
--- NOTE | 2020-05-16 07:17 | NUR ---
GAVE BEDSIDE SHIFT REPORT TO ONCOMING NURSE. CALL LIGHT WITHIN REACH. PATIENT IN BED. HOURLY ROUNDING PERFORMED.
[2020-05-16 08:10] VITALS: BP 134/60
[2020-05-16 08:20] VITALS: BP 134/68
[2020-05-16] MEDS: TRIAMTERENE 50 MG PO SCH (08:53)
[2020-05-16] MEDS: ATENOLOL 50 MG TAB PO SCH (08:53)
[2020-05-16] MEDS: MULTIVITAMINS/MINERALS TAB PO SCH (08:53)
[2020-05-16] MEDS ORDERED: NORCO 7.5-3251 EACH PO (10:55)
== END 2020-05-16 11:20 | disposition home or self-care (01) ==
LOC: OR 05:21 → PACU V 09:41 → MED/SURG 10:10
PROVIDERS: ADMIT Neurological Surgery; ATTEND Neurological Surgery
DX: M51.16 Intervertebral disc disorders with radiculopathy, lumbar region (principal); Z01.810 Encounter for preprocedural cardiovascular examination; Z01.812 Encounter for preprocedural laboratory examination; Z01.818 Encounter for other preprocedural examination; Z11.59 Encounter for screening for other viral diseases; I10 Essential (primary) hypertension; E78.5 Hyperlipidemia, unspecified; I25.10 Atherosclerotic heart disease of native coronary artery without angina pectoris; Z95.5 Presence of coronary angioplasty implant and graft; Z79.82 Long term (current) use of aspirin
CPT/HCPCS: 36415; 63056; 71046; 72020; 80048; 85025; 85610; 85730; 86850; 86900; 88304; 93005; G0378 ×2; J0690 ×2; J1100; J1170; J2001 ×2; J2250; J2405; J2704; J2710; J3010; J3370; U0002

== ENCOUNTER 2022-04-13 05:48 | Emergency (ER) | payer MEDICARE, OTHER ==
[~2022-04-13] VITALS: Ht 162.6 cm; Wt 106.6 kg
[~2022-04-13 05:48] MED LIST changes: +IBUPROFEN200 MG PO; +NORCO 7.5-3251 EACH PO
[2022-04-13] MEDS ORDERED: KETOROLAC TROMETHAMINE 30 MG/ML VIAL IM ONE (07:00)
[2022-04-13] MEDS ORDERED: LIDOCAINE 4% PATCH TP ONE ×2 (07:00→07:06)
[2022-04-13] MEDS ORDERED: ACETAMINOPHEN 325 MG TAB PO ONE (07:00)
[2022-04-13] MEDS ORDERED: ACETAMINOPHEN 325 MG TAB ONE (07:05)
[2022-04-13] MEDS ORDERED: KETOROLAC TROMETHAMINE 30 MG/ML VIAL ONE (07:06)
[2022-04-13] MEDS ORDERED: ULTRAM 50MG50 MG PO (07:55)
== END 2022-04-13 08:01 | disposition home or self-care (01) ==
LOC: ER 06:19
DX: S83.8X1A Sprain of other specified parts of right knee, initial encounter (principal); X50.1XXA Overexertion from prolonged static or awkward postures, initial encounter; Y92.89 Other specified places as the place of occurrence of the external cause; I10 Essential (primary) hypertension; E78.5 Hyperlipidemia, unspecified; Z95.5 Presence of coronary angioplasty implant and graft
CPT/HCPCS: 73562; 99284; J1885

== ENCOUNTER 2024-02-12 08:23 | Emergency (ER) | payer MEDICARE, OTHER ==
[~2024-02-12] VITALS: Ht 162.6 cm; Wt 102.1 kg
[~2024-02-12 08:23] MED LIST changes: +ULTRAM 50MG50 MG PO
[2024-02-12] MEDS: SODIUM CHLORIDE 0.9% 1000ML 1,000 ML IV STA (09:13)
[2024-02-12] MEDS: ACETAMINOPHEN 1000 MG/100 ML IV STA (09:14)
[2024-02-12] MEDS: ONDANSETRON HCL INJ 2MG/ML 2ML 2 MG/ML VIAL IV STA (09:23)
[2024-02-12] MEDS: FAMOTIDINE 20 MG/2 ML VIAL IV STA (09:23)
[2024-02-12 09:33] LABS: BASOPHILS % 0.4 % (0.0-1.0); HEMATOCRIT 34.5 % (34.2-44.1); HEMOGLOBIN 11.8 g/dL (12.0-16.0); LYMPHOCYTES # (AUTO) 1.3 (1.0-3.2); LYMPHOCYTES % 22.8 % (18.0-39.1); MEAN CORPUSCULAR HEMOGLOBIN 28.9 pg (28-32); MEAN CORPUSCULAR HGB CONC 34.2 g/dL (31-35); MEAN CORPUSCULAR VOLUME 84.6 fL (81-99); MONOCYTES # (AUTO) 0.5 (0.2-0.8); MONOCYTES % 8.3 % (4.4-11.3); NEUTROPHILS # (AUTO) 3.8 (2.1-6.9); NEUTROPHILS % 68.3 % (38.7-80.0); PLATELET COUNT 340 x10e3/uL (140-360); RED BLOOD COUNT 4.08 x10e6/uL (3.6-5.1); RED CELL DISTRIBUTION WIDTH 13.1 % (11.7-14.4); WHITE BLOOD COUNT 5.56 x10e3/uL (4.8-10.8)
[2024-02-12 09:52] LABS: ALBUMIN 3.5 g/dL (3.5-5.0); ALBUMIN/GLOBULIN RATIO 1.1 (0.8-2.0); ANION GAP 16.8 mmol/L (8-16); BILIRUBIN,TOTAL 0.5 mg/dL (0.2-1.2); CREATININE, SERUM 0.93 mg/dL (0.57-1.11); MAGNESIUM 1.4 MG/DL (1.3-2.1); POTASSIUM 3.8 mmol/L (3.5-5.1); TOTAL PROTEIN 6.8 g/dL (6.5-8.1)
[2024-02-12] MEDS ORDERED: ONDANSETRON ODT4 MG PO (10:28)
[2024-02-12 10:39] VITALS: PULSE 60; RESP 19; TEMP 97.9
[2024-02-12 11:04] VITALS: BP 157/80; PULSE 63; RESP 18; O2SAT 100
== END 2024-02-12 11:01 | disposition home or self-care (01) ==
LOC: ER 08:28
DX: R11.2 Nausea with vomiting, unspecified (principal); R19.7 Diarrhea, unspecified; U07.1 COVID-19; E87.1 Hypo-osmolality and hyponatremia; I10 Essential (primary) hypertension; E78.5 Hyperlipidemia, unspecified; M19.09 Primary osteoarthritis, other specified site; Z95.5 Presence of coronary angioplasty implant and graft; Z96.641 Presence of right artificial hip joint
CPT/HCPCS: 36415; 80053; 83735; 85025; 99283; J0131; J2405; J7030

== ENCOUNTER 2025-04-06 08:20 | Inpatient (IN) | payer MEDICARE, OTHER ==
[2025-04-06] VITALS (8 sets, daily range): BP systolic 122–151; BP diastolic 57–88; PULSE 53–65; RESP 18–20; TEMP 97.4–99.1; O2SAT 97–100
[~2025-04-06] VITALS: Ht 162.6 cm; Wt 100.0 kg
[~2025-04-06 08:20] MED LIST changes: +ONDANSETRON ODT4 MG PO
[2025-04-06 09:00] LABS: BASOPHILS % 0.6 % (0.0-1.0); EOSINOPHILS % 0.2 % (0.0-6.0); LYMPHOCYTES % 15.9 % (18.0-39.1); MONOCYTES % 7.0 % (4.4-11.3); NEUTROPHILS % 76.0 % (38.7-80.0); RED CELL DISTRIBUTION WIDTH 12.8 % (11.7-14.4)
[2025-04-06] MEDS ORDERED: ASPIRIN CHEW81 MG PO (09:09)
[2025-04-06 09:27] LABS: INR 0.84
[2025-04-06 09:36] LABS: CORONAVIRUS COVID-19 AG NEGATIVE (NEGATIVE)
[2025-04-06] MEDS: Morphine 2mg Syringe 2 MG/ML SYR IV STA (09:36)
[2025-04-06] MEDS: ONDANSETRON HCL INJ 2MG/ML 2ML 2 MG/ML VIAL IV STA (09:36)
[2025-04-06] MEDS: SODIUM CHLORIDE 0.9% 1000ML 1,000 ML IV STA (09:36)
[2025-04-06 09:38] LABS: EST GLOMERULAR FILTRATION RATE 50 ML/MIN (>=60)
[2025-04-06] MEDS: ATENOLOL 50 MG TAB PO ONE (09:50)
[2025-04-06] MEDS ORDERED: NITROGLYCERIN 0.4 MG SUBL SL PRN (10:00)
[2025-04-06] MEDS: SODIUM CHLORIDE 0.9% 1000ML 1,000 ML IV SCH (10:54)
[2025-04-06] MEDS ORDERED: SPIRONOLACTONE25 MG PO (13:47)
[2025-04-06] MEDS: ATORVASTATIN 10 MG TAB PO SCH (21:37)
[2025-04-06] MEDS: ONDANSETRON HCL INJ 2MG/ML 2ML 2 MG/ML VIAL IV PRN (21:42)
[2025-04-06] MEDS: Morphine 2mg Syringe 2 MG/ML SYR IV PRN (21:42)
[2025-04-07] VITALS (8 sets, daily range): BP systolic 128–149; BP diastolic 62–74; PULSE 55–79; RESP 18–22; TEMP 97.5–98.6; O2SAT 98–100
[2025-04-07 05:58] LABS: BASOPHILS % 0.8 % (0.0-1.0); EOSINOPHILS % 0.8 % (0.0-6.0); LYMPHOCYTES % 30.1 % (18.0-39.1); MONOCYTES % 5.8 % (4.4-11.3); NEUTROPHILS % 62.2 % (38.7-80.0); RED CELL DISTRIBUTION WIDTH 13.0 % (11.7-14.4)
[2025-04-07 06:22] LABS: CHOL/HDL RATIO 3.4 (3.0-3.6); EST GLOMERULAR FILTRATION RATE 53.0 ML/MIN (>=60); LDL CHOLESTEROL 96.0 MG/DL (60-130)
[2025-04-07] MEDS: ASPIRIN 81 MG CHEW TAB PO SCH (09:00)
[2025-04-07] MEDS: MULTIVITAMINS/MINERALS TAB PO SCH (09:13)
[2025-04-07] MEDS: ASPIRIN 81 MG ENTERIC COATED PO SCH (09:13)
[2025-04-07] MEDS: ATENOLOL 50 MG TAB PO SCH (09:14)
[2025-04-07] MEDS: SPIRONOLACTONE 25 MG TAB PO SCH (09:15)
[2025-04-08] VITALS: BP 144/68; PULSE 56; RESP 18; TEMP 98.1; O2SAT 98
[2025-04-08 04:38] VITALS: BP 148/72; PULSE 57; RESP 18; TEMP 97.5; O2SAT 98
[2025-04-08 08:00] VITALS: BP 152/84; PULSE 59; RESP 20; TEMP 97.5; O2SAT 99
[2025-04-08 09:00] VITALS: BP 152/84; PULSE 60; RESP 20; TEMP 97.5; O2SAT 99
[2025-04-08 12:00] VITALS: BP 168/61; PULSE 54; RESP 19; TEMP 98; O2SAT 98
== END 2025-04-08 14:50 | disposition home or self-care (01) | DRG 552 ==
LOC: ER 08:23 → ERHOLD 09:56 → MED/SURG2 11:58 → OBSVTOIN 04-07 20:36
PROVIDERS: ADMIT Family Medicine; ATTEND Family Medicine
DX: M54.50 Low back pain, unspecified (principal); N17.9 Acute kidney failure, unspecified; R55 Syncope and collapse; I13.10 Hypertensive heart and chronic kidney disease without heart failure, with stage 1 through stage 4 chronic kidney disease, or unspecified chronic kidney disease; G89.29 Other chronic pain; N28.9 Disorder of kidney and ureter, unspecified; I10 Essential (primary) hypertension; E78.5 Hyperlipidemia, unspecified; M19.90 Unspecified osteoarthritis, unspecified site; I25.10 Atherosclerotic heart disease of native coronary artery without angina pectoris; I11.9 Hypertensive heart disease without heart failure; R06.02 Shortness of breath; R61 Generalized hyperhidrosis; Z11.52 Encounter for screening for COVID-19; Z95.5 Presence of coronary angioplasty implant and graft; Z79.891 Long term (current) use of opiate analgesic; Z79.82 Long term (current) use of aspirin
CPT/HCPCS: 36415; 71045; 72148; 80053; 80061; 82550; 83735; 84484; 85025; 85610; 85730; 93005; 99284; G0378; J2270; J2405; J7030